=== PATIENT | female | born 1980 | race Asian ===

== ENCOUNTER 2018-08-26 04:16 | Inpatient (IN) | payer BC ==
[~2018-08-26] VITALS: Ht 172.7 cm; Wt 75.9 kg
[2018-08-26] VITALS (33 sets, daily range): BP systolic 89–155; BP diastolic 50–76; PULSE 70–98; TEMP 97.7–98.5
[~2018-08-26 04:16] MED LIST: MOTRIN 600600 MG/TAB PO; PERCOCET 325 MG1 TA2 PO; PRENATAL1 TA2 PO
[2018-08-26] MEDS ORDERED: PRENATAL MVI (04:38)
[2018-08-26] MEDS ORDERED: PROBIOTIC FORMU1 CAP PO (04:39)
[2018-08-26] MEDS ORDERED: CALCIUM CARBON650 M2 (04:39)
[2018-08-26] MEDS ORDERED: VITAMIN D 400400 IU PO (04:40)
[2018-08-26 06:46] LABS: BASO % 0.3 % (0.0-2.0); EOS # 0.2 (0.0-0.7); EOS % 2.3 % (0-4.0); GRAN # 4.8 (1.4-6.5); GRAN % 66.2 % (42.2-75.2); HEMATOCRIT 39.7 % (37.0-47.0); HEMOGLOBIN 13.3 g/dl (12.5-16.0); LYMPH # 1.7 (1.2-3.4); LYMPH % 22.7 % (20.0-51.0); MEAN CELL VOLUME 87 fl (80.0-100.0); MEAN CORPUSCULAR HEMOGLOBIN 29 pg (27.0-31.0); MEAN CORPUSCULAR HGB CONC 34 g/dl (33.0-37.0); MEAN PLATELET VOLUME 10.8 fl (7.4-10.4); MONO # 0.6 (0.1-0.6); MONO % 7.8 % (1.7-9.3); PLATELET COUNT 226 K/mm3 (130-400); RED BLOOD COUNT 4.54 M/mm3 (4.10-5.30); REDCELL DISTRIBUTION WIDTH-CV 12.8 % (11.5-14.5)
[2018-08-27 00:30] VITALS: BP 85/49; PULSE 68; TEMP 97.5
[2018-08-27 07:12] VITALS: BP 100/58; PULSE 82
[2018-08-27] MEDS ORDERED: MOTRIN 800800 MG/TAB PO (09:13)
[2018-08-27 16:00] VITALS: BP 100/68; PULSE 87; TEMP 97.9
[2018-08-27 19:20] VITALS: BP 95/49; PULSE 78; TEMP 98.3
[2018-08-28 07:38] VITALS: BP 97/56; PULSE 64; TEMP 97.8
[2018-08-28 16:00] VITALS: BP 100/62; PULSE 76; TEMP 97.6
== END 2018-08-28 16:30 | disposition home or self-care (01) | DRG 807 ==
LOC: LDRO 04:16 → LDR 06:12 → OB 15:00
PROVIDERS: Obstetrics & Gynecology
PROC: 10E0XZZ Delivery of Products of Conception, External Approach (ICD-10-PCS; principal; 2018-08-26)
PROC: 0KQM0ZZ Repair Perineum Muscle, Open Approach (ICD-10-PCS; 2018-08-26)
DX: O99.824 Streptococcus B carrier state complicating childbirth (principal); Z37.0 Single live birth; Z3A.00 Weeks of gestation of pregnancy not specified; Z3A.39 39 weeks gestation of pregnancy; O77.0 Labor and delivery complicated by meconium in amniotic fluid; O69.81X0 Labor and delivery complicated by cord around neck, without compression, not applicable or unspecified; O70.1 Second degree perineal laceration during delivery
CPT/HCPCS: J2540; J2590; J7120